=== PATIENT | female | born 1990 | race Caucasian/White ===

== ENCOUNTER 2021-05-09 10:54 | Outpatient (CLI) | payer OTHER ==
[2021-05-09 11:59] VITALS: BP 103/67
--- NOTE | 2021-05-09 11:59 | SLEEP CARE CONSULTATION ---
Information from patient questionnaire entered by Suzy Alejo. I have reviewed and concur with the information entered by Suzy Alejo. This document represents the service I personally performed and the decisions made by me, Marcia Cox ARNP. History of Present Illness Service Date and Time: 05/09/2021 1054 Reason for Visit: New patient, Previously diagnosed sleep apnea, sleep apnea on CPAP therapy (on and off) Chief Complaint: reports: Unrefreshed sleep, Fatigue, Other (update supplies) Date of Onset: 5 years Usual bedtime: 9 pm Time it takes to fall asleep: 30-45 minutes Snores at night: No Observed to quit breathing while asleep: No Sleeps alone due to snoring: No Number of times waking at night: 2-3 Reasons for waking at night: reports: Choking (more recent, may be due to allergies, phlegm in throat), Bathroom, Other (shifting) Toss, Turn, or Twitch while sleeping: Yes Recalls having dreams: No Usually gets out of bed at: 6-8 am Feels refreshed in the morning: No Morning headache: No Sleepy or fatigued during the day: Yes Ever fallen asleep while driving: No Takes day naps: No Dreams during day naps: No Prior sleep studies: Yes Year and Where: - [place] Additional HPI information: SUZY LA was previously diagnosed to have mild, AHI 5.5, obstructive sleep apnea-hypopnea syndrome and comes in today to establish care for CPAP therapy. Patient had been diagnosed 5 years ago and then used it off and on since then. She had not used it for a year before she tried again in November 10 but the pressures were not enough and she felt suffocating. She has "panting" or quick breaths. Her partner has not seen pauses in breathing and very mild snoring. She is really groggy in the morning but drinks coffee, 2 cups, in morning. She does not feel well rested. She has after lunch "slump", feeling tired/sleepy in the afternoon. She avoids naps because she will just keep sleeping for hours. She has a family history of sleep apnea with both parents, one diagnosed and treated and the other not. - Parasomnia Symptoms Ever been unable to move upon waking from sleep: No Walks in sleep: No Talks in sleep: No Ever acted out dreams in sleep: No Ever felt weak in the knees when startled or emotional: No Bothered by creepy, crawly, restless sensations in legs: No Problems with memory or concentration: Yes (increasing issues with memory for the last year) CPAP Compliance Data - Data Reviewed with Patient Average duration of nightly device use: 1 hour 38 mins Compliance rate %: 0 (180 day) Current pressure setting (cmH2O): 7-12 Average residual AHI: 1.0 Average large leak: 0 secs Compliance data discussion: She has used an over nose mask with comfort and good results. She has an older device that is on the recall and will need a new device. She has contacted a [employer] company in [facility] but needs prescription for supplies. Subjective Patient concerns: reports: mask discomfort, air blowing in eyes, mask leak noise. denies: aerophagia, condensation in mask/hose, nasal congestion, dry mouth, nose, throat, epistaxis, other Observed to snore while using device: No Current pressure setting perceived as: too low On therapy, patient: reports: sleeping better, awakening more refreshed, being more awake and alert during the day, more rested overall. 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 Patient is and lives in [place]. Have you smoked in the past 12 months: No Alcohol use: Yes Alcohol amount and frequency: 2 beers per night Caffeine use: Yes Caffeine amount and frequency: 3-4 coffees everyday Family History Family history of sleep disordered breathing: Yes Family Hx Sleep Apnea: Mother: Snoring, Sleep apnea - Untreated, Father: Snoring, Sleep apnea - Treated, Sibling: Snoring Allergies and Home Medications Drug allergies reviewed: Yes (NKDA) Home medication list reviewed: Yes (daily multivitamins) Review of Systems Weight gain over past 5 years: 35 Cardiovascular: denies: high blood pressure Gastrointestinal: denies: heartburn Neurological: denies: headaches Psychiatric: denies: anxiety, depression Ear/Nose/Throat: reports: wisdom teeth removed. denies: injury to nose, tonsillectomy Immunologic: reports: allergies to food or environment (seasonal since being in [place]) Physical Exam Blood Pressure: 103/67 Cuff size: wrist Heart Rate: 71 O2 Saturation: 98 Height: 5 ft 11 in Weight: 225 lb Body Mass Index: 31.4 BMI Classification: Obese Heart: regular rate and rhythm Lungs: clear bilaterally Impression and Plan 1. Obstructive Sleep Apnea-Hypopnea Syndrome, mild. On CPAP therapy, the patient has better sleep quality and is more rested overall. Patient has been on again and off again with the use of her CPAP for the last 5 years. She did restart again in October but because the pressure will not go above 8 cmH2O, it feels suffocating to wear the mask. Patient would like to restart CPAP therapy and needs supplies as well as her pressure increased. Patient has an old REMstar 60 series Enriqueta machine that is on a recall. We will need to update her device as well as supplies to get her going again. We will have her follow-up here 1 month after she has obtains her new device. Patient was encouraged to lose weight for their overall health and to reduce apneas. Patient's apnea severity and rationale for treatment to reduce apnea, improve sleep quality and reduce cardiovascular and cerebrovascular events was reviewed. * Change auto CPAP pressure to 7-15 cmH2O * Update machine * Update supplies * Notify me if snoring with mask or feeling that the pressure is too much or too little * Attempt to lose weight * Call this office if any problems using CPAP * Return for follow up one month after obtaining new device, or sooner if concerns arise Counseling Topics: Spare mask, Weight loss health impact Visit Type: In Office Time Spent with Patient (minutes): 33 Provider Statement: I spent 100% of the Face to Face Visit with the patient with greater than 50% spent counseling the patient and coordination of care.
== END 2021-05-09 10:55 | disposition home or self-care (01) ==
LOC: SC 10:54
PROVIDERS: ATTEND Nurse Practitioner Family
DX: G47.33 Obstructive sleep apnea (adult) (pediatric) (principal); E66.9 Obesity, unspecified; Z68.31 Body mass index [BMI] 31.0-31.9, adult
CPT/HCPCS: 99203; 99212

== ENCOUNTER 2021-08-12 08:33 | Outpatient (CLI) | payer OTHER ==
[2021-08-12 09:14] VITALS: BP 125/90
--- NOTE | 2021-08-12 09:14 | SLEEP CARE CONSULTATION ---
Information from patient questionnaire entered by Sarika Ball MA. I have reviewed and concur with the information entered by Sarika Ball MA. This document represents the service I personally performed and the decisions made by , Marcia Cox ARNP. History of Present Illness Service Date and Time: 08/12/2021 0833 Previous diagnosis: Mild, Obstructive Sleep Apnea-Hypopnea Syndrome AHI: 5.5 Reason for follow up: first compliance (SET UP 07/10), first compliance after device update Equipment type: CPAP Equipment obtained from: [employer] (getting supplies) Mask style: Nasal (Airfit N20, medium) Backup mask available: Yes (other mask) Last cushion change: 1 month Prior sleep studies: Yes Year and Where: - [place] [facility] additional information: MILANA LA was diagnosed to have mild, AHI 5.5, obstructive sleep apnea-hypopnea syndrome and returned today for CPAP therapy first compliance follow-up. Sleep Study - Results Prior sleep studies: Yes Year and Where: - [place] CPAP Compliance Data - Data Reviewed with Patient Current pressure setting (cmH2O): 7-8 Average residual AHI: 1.5 Compliance data discussion: Patient has a new Yesica II CPAP machine. We do not yet have access to see her stats. We will continue to try to obtain the report from the machine. Patient states that she does use it nightly but will take it off after 3-5 hours of sleep. We will check compliance once we have access. I was able to look at some information on her Iphone qamar for the Yesica II. It shows her average nightly use is 1-3 hours with a few over 5 hours. She is using a median pressure of 7.0 cmH2O. Her 95% average fluctuates from 7.5 to 8 cmH2O. Her AHI fluctuates from 0.6 to 1.2. I cannot get any more information. Subjective Patient concerns: reports: mask leak noise, nasal congestion, dry mouth, nose, throat (occasional). denies: aerophagia, mask discomfort, air blowing in eyes, condensation in mask/hose, epistaxis, other Observed to snore while using device: No Current pressure setting perceived as: comfortable On therapy, patient: reports: sleeping better, awakening more refreshed, being more awake and alert during the day, more rested overall. denies: drowsiness while driving Initial [place] Sleepiness Scale score: 9 (in 2020) Current [place] Sleepiness Scale score: 10 (2020) Allergies and Home Medications Home medication list reviewed: Yes (no changes) Review of Systems Review of systems same as previous: Yes (no changes) Physical Exam Blood Pressure: 125/90 (LEFT) Cuff size: wrist Heart Rate: 73 O2 Saturation: 93 (WITH CLOTH MASK) Height: 5 ft 11 in Weight: 224 lb (WITH BOOTS AND CLOTHES) Body Mass Index: 31.2 BMI Classification: Obese Impression and Plan 1. Obstructive Sleep Apnea-Hypopnea Syndrome, mild, with unknown treatment compliance and unknown apnea control. On CPAP therapy, the patient has better sleep quality and is more rested overall. Patient has a Yesica II APAP which we have had difficulty trying to get her compliance information. Patient downloaded an application on her Iphone so I could look at some of her stats. Over the last month patient averages 95% of time between 7.5-8 cmH2O, she averages wearing it between 1 and 3 hours with a few 5 or 6 hours noted and her residual AHI fluctuates between 0.6-1.2 on average. We will continue to try to get a better download of her report. Patient states she's had difficulty using her device because of the mask but she has since replaced her mask she is able to wear it for longer periods of time at night. I will have her follow up in 1-2 months to recheck her compliance. Patient's apnea severity and rationale for treatment to reduce apnea, improve sleep quality and reduce cardiovascular and cerebrovascular events was reviewed. Patient was encouraged to lose weight for their overall health and to reduce apneas. * Continue auto CPAP pressure at 7-15 cmH2O * Notify me if snoring with mask or feeling that the pressure is too much or too little * Attempt to lose weight * Call this office if any problems using CPAP * Return for follow up in 1-2 months, or sooner if concerns arise Counseling Topics: Spare mask, Weight control Visit Type: In Office Time Spent with Patient (minutes): 22 Provider Statement: I spent 100% of the Face to Face Visit with the patient with greater than 50% spent counseling the patient and coordination of care.
== END 2021-08-12 08:34 | disposition home or self-care (01) ==
LOC: SC 08:33
PROVIDERS: ATTEND Nurse Practitioner Family
DX: G47.33 Obstructive sleep apnea (adult) (pediatric) (principal); E66.9 Obesity, unspecified; Z68.31 Body mass index [BMI] 31.0-31.9, adult
CPT/HCPCS: 99212; 99213

== ENCOUNTER 2021-09-09 10:30 | Outpatient (CLI) | payer OTHER ==
[2021-09-09 11:07] VITALS: BP 81/60
--- NOTE | 2021-09-09 11:07 | SLEEP CARE CONSULTATION ---
Information from patient questionnaire entered by Sarika Ball MA. I have reviewed and concur with the information entered by Sarika Ball MA. This document represents the service I personally performed and the decisions made by , Marcia Cox ARNP. History of Present Illness Service Date and Time: 09/09/2021 1030 Previous diagnosis: Mild, Obstructive Sleep Apnea-Hypopnea Syndrome AHI: 5.5 Reason for follow up: one month (YESICA (NABILA)) Equipment type: CPAP Equipment obtained from: [employer] (getting supplies) Mask style: Nasal Backup mask available: Yes (other mask) Prior sleep studies: Yes Year and Where: - [facility] additional information: MILANA LA was diagnosed to have mild, AHI 5.5, obstructive sleep apnea- hypopnea syndrome and returned today for CPAP therapy one month follow-up. Sleep Study - Results Prior sleep studies: Yes Year and Where: - [facility] CPAP Compliance Data - Data Reviewed with Patient Average duration of nightly device use: 6 hours Current pressure setting (cmH2O): 7-15 (mean 7.0, 95% avg 8.0) Average residual AHI: 1.3 Subjective Patient concerns: reports: nasal congestion (just a little), other (SWITCHED TO HER OLD MASK AND IT IS COMFORTABLE). denies: aerophagia, mask discomfort, air blowing in eyes, mask leak noise, condensation in mask/hose, dry mouth, nose, throat, epistaxis Observed to snore while using device: No Current pressure setting perceived as: comfortable On therapy, patient: reports: sleeping better, awakening more refreshed, being more awake and alert during the day, more rested overall. denies: drowsiness while driving Initial [place] Sleepiness Scale score: 9 (in 2020) Current [place] Sleepiness Scale score: 10 (2021) Allergies and Home Medications Known drug allergies: No Drug allergies reviewed: Yes Home medication list reviewed: Yes (no changes) Review of Systems Review of systems same as previous: Yes (no changes) Physical Exam Vital signs obtained and entered by: ELIEZER LEWIS Blood Pressure: 81/60 (RIGHT, PULSE WAS 76) Heart Rate: 76 O2 Saturation: 97 (WITH PAPER MASK) Height: 5 ft 11 in Weight: 227 lb (WITH CLOTHES AND SHOES) Weight change since last visit: 3 lb gain Body Mass Index: 31.6 BMI Classification: Obese Impression and Plan 1. Obstructive Sleep Apnea-Hypopnea Syndrome, mild, with good treatment compliance and good apnea control. On CPAP therapy, the patient has better sleep quality and is more rested overall. I was able to get some compliance information off of her Yesica II. It did not have a compliance percentage but patient is averaging 6 hours nightly. She states that she is using her device nightly. She has been happier with her mask change and able to use the mask for longer. She had been averaging 4 hours with her last mask. Patient's apnea severity and rationale for treatment to reduce apnea, improve sleep quality and reduce cardiovascular and cerebrovascular events was reviewed. Patient has gained weight. Currently patients BMI is 31.6. Obesity increases the risk of apnea, CPAP pressure requirements and overall health risks especially cardiovascular and diabetes. Patient was encouraged to lose weight for their overall health and to reduce apneas. * Continue auto CPAP pressure at 7-15 cmH2O * Notify me if snoring with mask or feeling that the pressure is too much or too little * Attempt to lose weight * Call this office if any problems using CPAP * Return for follow up in 6 months, or sooner if concerns arise Counseling Topics: Spare mask, Weight loss health impact Visit Type: In Office Time Spent with Patient (minutes): 20 Provider Statement: I spent 100% of the Face to Face Visit with the patient with greater than 50% spent counseling the patient and coordination of care.
== END 2021-09-09 10:31 | disposition home or self-care (01) ==
LOC: SC 10:30
PROVIDERS: ATTEND Nurse Practitioner Family
DX: G47.33 Obstructive sleep apnea (adult) (pediatric) (principal); E66.9 Obesity, unspecified; Z68.31 Body mass index [BMI] 31.0-31.9, adult
CPT/HCPCS: 99212; 99213